=== PATIENT | male | born 1985 | race Caucasian/White ===

== ENCOUNTER 2018-12-13 19:26 | Emergency (ER) | payer BC, OTHER ==
[2018-12-13] MEDS ORDERED: KETOROLAC 60 MG/2 ML VIAL IM STA (19:51)
--- NOTE | 2018-12-13 20:14 | XR ---
EXAMINATION TYPE: XR knee 4V LT DATE OF EXAM: 12/13/2018 COMPARISON: NONE HISTORY: Knee pain TECHNIQUE: 4 views FINDINGS: I see no fracture nor dislocation. Joint spaces are fairly normal. There are no erosions. T here is no sign of knee joint effusion. IMPRESSION: Negative left knee exam.
--- NOTE | 2018-12-13 20:50 | ED ---
General Adult HPI - General Chief complaint: Extremity Injury, Lower Stated complaint: Knee pain Time Seen by Provider: 12/13/18 19:42 Source: patient, RN notes reviewed, old records reviewed Mode of arrival: ambulatory Limitations: no limitations - History of Present Illness Initial comments: 33-year-old male patient with past medical history of left knee injury, facial reconstruction secondary to trauma presents to ED with 36 hours of left knee pain and stiffness. Patient reports that while playing basketball approximately 10 years ago he suffered a injury in which he reports that "something popped in and out". Patient was evaluated by his primary care provider at the time for this problem, did not require any surgery or further intervention. Patient was that he still has pain in this knee at times. Patient reports that while he was getting into bed yesterday and bending his left knee he felt a pop in the left knee and had pain. Patient currently has stiffness in his knee, pain with full extension. Patient is currently using crutches and his not ambulatory. Patient denies any other signs or symptoms. Systemic: Pt denies fatigue, fever/chills, rash. Pt denies weakness, night sweats, weight loss. Neuro: Pt denies headache, visual disturbances, syncope or pre-syncope. HEENT: Pt denies ocular discharge or irritation, otalgia, rhinorrhea, pharyngitis or notable lymphadenopathy. Cardiopulmonary: Pt denies chest pain, SOB, heart palpitations, dyspnea on exertion. Abdominal/GI: Pt denies abdominal pain, n/v/d. : Pt denies dysuria, burning w/ urination, frequency/urgency. Denies new onset urinary or bowel incontinence. MSK: Pt denies loss of strength or function in extremities. Neuro: Pt denies new onset weakness, paresthesias. - Related Data Previous Rx's Medication Instructions Recorded Ibuprofen [Motrin] 600 mg PO Q6HR PRN #40 day 12/13/18 Allergies Allergy/AdvReac Type Severity Reaction Status Date / Time melon Allergy Anaphylaxis Verified 12/13/18 19:40 Review of Systems ROS Statement: Those systems with pertinent positive or pertinent negative responses have been documented in the HPI. ROS Other: All systems not noted in ROS Statement are negative. Past Medical History Past Medical History: No Reported History History of Any Multi-Drug Resistant Organisms: None Reported Past Surgical History: Appendectomy Additional Past Surgical History / Comment(s): Facial surgery Past Psychological History: No Psychological Hx Reported Smoking Status: Current every day smoker Past Alcohol Use History: Rare Past Drug Use History: Marijuana General Exam - General Exam Comments Initial Comments: Constitutional: NAD, AOX3, Pt has pleasant affect. HEENT: NC/AT, trachea midline, neck supple, no lymphadenopathy. Posterior pharynx non erythematous, without exudates. External ears appear normal, without discharge. Mucous membranes moist. Eyes PERRLA, EOM intact. There is no scleral icterus. No pallor noted. Cardiopulmonary: RRR, no murmurs, rubs or gallops, no JVD noted. Lungs CTAB in anterior and posterior smalls. No peripheral edema. Abdominal exam: Abdomen soft and non-distended. Abdomen non-tender to palpation in all 4 quadrants. Bowel sounds active in LLQ. No hepatosplenomegaly. No ecchymosis Neuro: CN II-XII grossly intact. No nuchal rigidity. MSK: Passive ROM of L knee intact, active ROM of L knee limited secondary to pain. Sensation intact. Dorsalis pedis and posterior tibialis pulse +2 bilaterally. Psoas and quadriceps strength 5/5 bilaterally. No posterior calf tenderness bilaterally, homans sign negative bilaterally. Posterior tibialis and radial pulse +2 bilaterally. Sensation intact in upper and lower extremities. Full active ROM in upper extremities 5/5 stregnth. Limitations: no limitations Course Vital Signs 12/13/18 19:37 Temperature 98.2 F Pulse Rate 103 H Respiratory 20 Rate Blood Pressure 164/81 O2 Sat by Pulse 100 Oximetry Medical Decision Making - Medical Decision Making 33-year-old male patient with past medical history of left knee injury, facial reconstruction secondary to trauma presents to ED with 36 hours of left knee pain and stiffness. Patient reports that while he was getting into bed yesterday and bending his left knee he felt a pop in the left knee and had pain. Patient currently has stiffness in his knee, pain with full extension. Patient is currently using crutches and his not ambulatory. Pt VSS, afebrile. Plain film of L knee revealed no acute pathology. Pt improved with toradol, active ROM improved, pt able to range knee. Pt to be placed in knee immobilzer and continue to use crutches, continue to be non weight bearing. Pt to f/u with PCP in 1-2 days. Pt to f/u with orthopedic consult in 1-2 days. PT to return to ED if new s/sx develop or if condition worsens in anyway. Case discussed in depth with Dr. Mosher. Disposition Clinical Impression: Knee pain, left Disposition: HOME SELF-CARE Condition: Stable Instructions: Knee Sprain (ED), Knee Pain (ED) Additional Instructions: Patient to adhere to previously discussed treatment plan and will take medication(s) as directed. Patient to follow up with PCP in 1-2 days. Patient to return to ED if symptoms do not improve. Prescriptions: Ibuprofen [Motrin] 600 mg PO Q6HR PRN #40 day PRN Reason: Pain Is patient prescribed a controlled substance at d/c from ED?: No Referrals: None,Stated [Primary Care Provider] - 1-2 days Harvey Carter MD [STAFF PHYSICIAN] - 1-2 days Time of Disposition: 20:54
[2018-12-13 21:07] VITALS: BP 125/83; PULSE 89; RESP 18; TEMP 98.7
== END 2018-12-13 21:07 | disposition home or self-care (01) ==
LOC: EC 19:26
DX: M25.562 Pain in left knee (principal); F17.200 Nicotine dependence, unspecified, uncomplicated; Z91.018 Allergy to other foods; Z87.828 Personal history of other (healed) physical injury and trauma; Z98.890 Other specified postprocedural states; X58.XXXA Exposure to other specified factors, initial encounter; Y93.89 Activity, other specified
CPT/HCPCS: 73564; 99284; 96372; L1830; J1885

== ENCOUNTER → 2018-12-28 | Outpatient (CLI) | payer SELFPAY ==
[2018-12-28 15:02] LABS: Basophils # (A) 0.1 k/uL (0-0.2); Basophils % (A) 1 %; Eosinophils # (A) 0.6 k/uL (0-0.7); Eosinophils % (A) 7 %; HCT 47.4 % (39.0-53.0); HGB 15.4 gm/dL (13.0-17.5); Lymphocytes # (A) 2.7 k/uL (1.0-4.8); Lymphocytes % (A) 31 %; MCH 29.3 pg (25.0-35.0); MCHC 32.4 g/dL (31.0-37.0); MCV 90.4 fL (80.0-100.0); Mean Platelet Volume 6.1; Monocytes # (A) 0.5 k/uL (0-1.0); Monocytes % (A) 5 %; Neutrophils # (A) 4.6 k/uL (1.3-7.7); Neutrophils % (A) 53 %; Platelet Count 251 k/uL (150-450); RBC 5.24 m/uL (4.30-5.90); RDW 12.4 % (11.5-15.5); WBC 8.7 k/uL (3.8-10.6)
[2018-12-28 15:16] LABS: Potassium 4.7 mmol/L (3.5-5.1)
== END | disposition home or self-care (01) ==
LOC: LABPAT 13:02
PROVIDERS: ATTEND Orthopaedic Surgery
DX: Z01.812 Encounter for preprocedural laboratory examination (principal); M23.92 Unspecified internal derangement of left knee
CPT/HCPCS: 36415; 80051; 85025

== ENCOUNTER 2018-12-29 12:23 | Day surgery (SDC) | payer SELFPAY ==
[2018-12-24 15:47] VITALS: BMI 28.6
--- NOTE | 2018-12-28 09:27 | HP ---
HISTORY AND PHYSICAL CHIEF COMPLAINT: Left knee pain. HISTORY OF PRESENT ILLNESS: Patient is a 33-year-old, unemployed male who presents with left knee pain after a previous injury 12 years ago playing basketball. He re-injured it recently. He notes limited motion, and pain with weightbearing activities. Currently, he is taking no pain medications. He notes giving way and instability. PAST MEDICAL HISTORY: Negative. PAST SURGICAL HISTORY: Significant for appendectomy and facial reconstruction. CURRENT ALLERGIES: None. He denies drug allergies. FAMILY HISTORY: Significant for diabetes. SOCIAL HISTORY: Significant for social alcohol use and current tobacco use. REVIEW OF SYSTEMS: A 16-point review of systems otherwise reviewed and is noncontributory. PHYSICAL EXAMINATION: Patient is approximately 5 foot 11, 210 pounds of endomorphic habitus. HEENT exam is nonfocal. Neck is supple. He has painless passive motion of his left hip. Straight leg raise is negative. Active motion left knee -10 to 110 degrees of flexion. He has a moderate effusion. He is tender about the lateral joint line. Collaterals are stable. Dimitrios is 1+. Pivot shift is positive. Johanna's elicits lateral pain. His distal neurovascular appears intact in the left lower extremity. MRI report from 12/17/2018 shows lateral compartment osteoarthrosis along with chronic ACL rupture and bucket-handle tear of the lateral meniscus. IMPRESSION: 1. Left knee internal derangement with symptomatic lateral meniscal tear. 2. Left knee chronic ACL rupture. RECOMMENDATIONS: I talked to the patient at length regarding his condition and treatment options. At this point, he is quite symptomatic and opts to proceed with surgery. We will plan to proceed with arthroscopic evaluation with probable partial lateral meniscectomy in addition to possible ACL debridement. We will likely perform that as an outpatient procedure. Risks and benefits were discussed at length in layman's terms. MMODL / IJN: [id number] /
[~2018-12-29 12:23] MED LIST: DEXAMETHASONE SOD PHOSPHATE 10 MG/ML 1 ML VIAL IV ONE; LACTATED RINGERS 1,000 ML IV SCH; LIDOCAINE 1% 20 ML VIAL (10MG/ML) FOR IV START INTRADERMA PRN; MIDAZOLAM 2 MG/2 ML VIAL IV PRN; ceFAZolin IN SWFI 2 GM/20 ML SYRINGE IVP ONE; fentaNYL (PF) 50 MCG/ML 2 ML AMP IV PRN
[2018-12-29] MEDS ORDERED: ONDANSETRON 4 MG/2 ML VIAL IVP ONE (13:14)
[2018-12-29 13:18] LABS: Glucose,Whole Blood 98 mg/dL (75-99)
[2018-12-29] MEDS ORDERED: MIDAZOLAM 2 MG/2 ML VIAL ONE ×2 (13:59)
[2018-12-29] MEDS ORDERED: PROPOFOL 10 MG/ML 20 ML VIAL IV ONE (13:59)
[2018-12-29] MEDS ORDERED: LIDOCAINE 1% INJ 10MG/ML (20 ML MDV) ONE (13:59)
--- NOTE | 2018-12-29 14:44 | P.OP ---
Date of Procedure: 12/29/18 Preoperative Diagnosis: Left knee internal derangement Postoperative Diagnosis: Left knee bucket-handle lateral meniscal tear, chronic ACL rupture Procedure(s) Performed: Left knee arthroscopic partial lateral meniscectomy/ACL debridement Anesthesia: ALONA Surgeon: Harvey Carter Estimated Blood Loss (ml): 10 Pathology: none sent Condition: stable Disposition: PACU Indications for Procedure: The patient is a 33-year-old male who presents with progressive left knee pain and mechanical symptoms after a recent injury, however he had the initial injury 12 years ago. A discussion of the risks and benefits of operative intervention was made with the patient. He opted to proceed with surgery. Operative risks to include infection, neurovascular injury, development of blood clots, possible incomplete resolution of symptoms, possible persistence of instability and need for subsequent procedures was discussed. Informed consent was obtained. We discussed not proceeding with ACL reconstruction at this point. Operative Findings: As below Description of Procedure: The patient was brought to the operating room, and after induction of general anesthesia examined the left knee. Collaterals were stable, Dimitrios was positive, and posterior drawer was negative. The left lower extremity was prepped and draped in a normal fashion. A superior lateral portal was made through a 3 mm skin incision superior and lateral to the patella. This was used for outflow. A lateral portal was made through a 5 mm vertical skin incision lateral to the patella tendon above the joint line. Diagnostic arthroscopy was performed. On inspection of the medial compartment no significant meniscal pathology was noted. On inspection of the notch, the anterior cruciate ligament appeared to be ruptured off the lateral femoral wall. The impinging tissue was debrided anteriorly. On inspection of the lateral compartment, a bucket-handle tear involving the lateral meniscus was noted in the white-red junction. This was not amenable to repair. This was debrided back to stable base with straight baskets and a motorized shaver. Grade 2 chondral changes were noted diffusely in the lateral compartment. On inspection of the patellofemoral articulation no significant pathology was noted. The gutters were clear debris. The knee was then thoroughly irrigated. The portals were closed with Steri-Strips. A sterile dressing was applied in addition to a compression stocking. The patient was awoken from general anesthesia and transferred to recovery room in good condition. Blood loss was estimated at 10 mL. No complications were incurred.
[2018-12-29 14:59] VITALS: TEMP 97.6
[2018-12-29] MEDS ORDERED: KETOROLAC 30 MG/ML 1 ML VIAL IVP ONE (15:05)
[2018-12-29] MEDS: HYDROmorphone 1 MG/ML 1 ML SYRINGE IVP ONE ×2 (15:06→15:13)
[2018-12-29 15:56] VITALS: RESP 16
[2018-12-29 16:13] VITALS: BP 132/81; PULSE 59
[2018-12-29 16:24] LABS: Glucose,Whole Blood 119 mg/dL (75-99)
== END 2018-12-29 16:29 | disposition home or self-care (01) ==
LOC: OR 12:23
PROVIDERS: ATTEND Orthopaedic Surgery
DX: S83.252A Bucket-handle tear of lateral meniscus, current injury, left knee, initial encounter (principal); M23.52 Chronic instability of knee, left knee; M17.12 Unilateral primary osteoarthritis, left knee; Z91.018 Allergy to other foods; F17.210 Nicotine dependence, cigarettes, uncomplicated; K21.9 Gastro-esophageal reflux disease without esophagitis; Z79.1 Long term (current) use of non-steroidal anti-inflammatories (NSAID)
CPT/HCPCS: 29881; 29999; J2250; J1100; J2405; J2001; J1885; J1170; J2704; J0690

== ENCOUNTER 2019-11-14 21:56 | Emergency (ER) | payer OTHER ==
[2019-11-14 22:04] VITALS: BP 124/81; PULSE 91; RESP 20; TEMP 97.9
--- NOTE | 2019-11-14 22:41 | ED ---
General Adult HPI - General Chief complaint: Extremity Problem,Nontraumatic Stated complaint: Leg swelling Time Seen by Provider: 11/14/19 22:07 Source: patient, family, RN notes reviewed Mode of arrival: ambulatory Limitations: no limitations - History of Present Illness Initial comments: 34-year-old male without any significant past medical history presents to the emergency department for right lower extremities pain. Patient was walking this morning after drinking last night. States he is unsure if he injured his ankle at that time. States this also happened a few days ago and then it resolved. States that he feels like his lower leg is swollen and red. States it hurts in his calf to move his ankle. Denies fevers or chills. Denies any immunocompromising states. Patient has no other complaints at this time including shortness of breath, chest pain, abdominal pain, nausea or vomiting, headache, or visual changes. - Related Data Previous Rx's Medication Instructions Recorded Ibuprofen [Motrin] 600 mg PO Q6HR PRN #40 day 12/13/18 Hydrocodone/Acetaminophen [[place] 1 each PO Q6HR PRN #28 tab 12/29/18 5-325] Cephalexin [Keflex] 500 mg PO Q6HR 10 Days #40 cap 11/14/19 Allergies Allergy/AdvReac Type Severity Reaction Status Date / Time melon Allergy Anaphylaxis Verified 11/14/19 22:04 Review of Systems ROS Statement: Those systems with pertinent positive or pertinent negative responses have been documented in the HPI. ROS Other: All systems not noted in ROS Statement are negative. Past Medical History Past Medical History: No Reported History Additional Past Medical History / Comment(s): hypoglycemia History of Any Multi-Drug Resistant Organisms: None Reported Past Surgical History: Appendectomy Additional Past Surgical History / Comment(s): Facial surgery Past Anesthesia/Blood Transfusion Reactions: No Reported Reaction Additional Past Anesthesia/Blood Transfusion Reaction / Comment(s): no hx blood transfusion Past Psychological History: No Psychological Hx Reported Smoking Status: Current every day smoker Past Alcohol Use History: Occasional Past Drug Use History: Marijuana - Past Family History Mother Family Medical History: No Reported History General Exam Limitations: no limitations General appearance: alert, in no apparent distress Head exam: Present: atraumatic, normocephalic, normal inspection Eye exam: Present: normal appearance, PERRL, EOMI. Absent: scleral icterus, conjunctival injection, periorbital swelling ENT exam: Present: normal exam, mucous membranes moist Neck exam: Present: normal inspection, full ROM. Absent: tenderness, meningismus, lymphadenopathy Respiratory exam: Present: normal lung sounds bilaterally. Absent: respiratory distress, wheezes, rales, rhonchi, stridor Cardiovascular Exam: Present: regular rate, normal rhythm, normal heart sounds. Absent: systolic murmur, diastolic murmur, rubs, gallop, clicks Extremities exam: Present: full ROM (Full range motion of the right ankle and knee), tenderness (Tenderness noted in the posterior right distal calf. No tenderness in the foot, medial, or lateral malleolus. No tenderness posterior to the right knee.), normal capillary refill (Capillary refill < 2 seconds, dp pulse 2+ in the right lower extremity.), other (mild edema of the RLE with mild erythema from the proximal ankle to the mid calf.). Absent: pedal edema, joint swelling, calf tenderness Course Vital Signs 11/14/19 21:59 Temperature 97.9 F Pulse Rate 91 Respiratory 20 Rate Blood Pressure 124/81 O2 Sat by Pulse 96 Oximetry Medical Decision Making - Medical Decision Making X-ray of the tib-fib is negative. Ultrasound of the right lower extremity is negative for DVT. Patient physical exam is consistent with cellulitis. This is about 10 cm x 10 cm in the distal right lower extremity. Patient treated with Keflex. Patient will follow up with primary care in 1-2 days. He will return here if he has any worsening symptoms. I did discuss that symptoms may spread a small amount over the next 24 hours however symptoms should then begin to improve. If this does not improve after 24-48 hours, has significant spreading of the erythema in the next day. or he starts to experience fevers he will return Disposition Clinical Impression: Cellulitis Disposition: HOME SELF-CARE Condition: Good Instructions (If sedation given, give patient instructions): Cellulitis (ED) Additional Instructions: Please take antibiotic as directed. Please follow-up with primary care in 1-2 days. Redness may spread a small amount over the next 24 hours however it should begin to improve after that. If you have significant spreading of the redness or symptoms do not begin to improve after 24-48 hours of antibiotics return to the emergency department. If you have any other worsening symptoms such as fever return to the emergency room. Prescriptions: Cephalexin [Keflex] 500 mg PO Q6HR 10 Days #40 cap Is patient prescribed a controlled substance at d/c from ED?: No Referrals: Donato Clemente MD [REFERRING] - 1-2 days Time of Disposition: 23:34
--- NOTE | 2019-11-14 23:00 | XR ---
EXAMINATION TYPE: XR tibia fibula RT DATE OF EXAM: 11/14/2019 COMPARISON: NONE HISTORY: Pain TECHNIQUE: 2 views FINDINGS: I see no fracture nor dislocation. Joint spaces are normal. Joint and ankle joint appear intact. IMPRESSION: Negative right tibia and fibula exam.
--- NOTE | 2019-11-14 23:15 | US ---
EXAMINATION TYPE: US venous doppler duplex LE RT DATE OF EXAM: 11/14/2019 10:32 PM COMPARISON: NONE CLINICAL HISTORY: erythema. SIDE PERFORMED: Right TECHNIQUE: The lower extremity deep venous system is examined utilizing real time linear array sonog ramesh with graded compression, doppler sonography and color-flow sonography. VESSELS IMAGED: External Iliac Vein (EIV) Common Femoral Vein Deep Femoral Vein Greater Saphenous Vein * Femoral Vein Popliteal Vein Small Saphenous Vein * Proximal Calf Veins (* superficial vessels) Right Leg: Negative for DVT IMPRESSION: Normal exam. No evidence of deep venous thrombosis in the right leg.
[2019-11-14] MEDS ORDERED: CEPHALEXIN 500MG STARTER PACK 4 CAP BTL PO STA (23:35)
== END 2019-11-14 23:47 | disposition home or self-care (01) ==
LOC: EC 21:56
DX: L03.115 Cellulitis of right lower limb (principal); F17.200 Nicotine dependence, unspecified, uncomplicated; Z91.018 Allergy to other foods
CPT/HCPCS: 99284

== ENCOUNTER 2022-08-26 02:07 | Observation (INO) | payer OTHER ==
--- NOTE | 2022-08-26 02:42 | XR ---
EXAMINATION TYPE: XR KUB DATE OF EXAM: 08/26/2022 COMPARISON: NONE HISTORY: Abdominal pain TECHNIQUE: 2 views Upright FINDINGS: There is no sign of intestinal obstruction or pneumoperitoneum. Fecal pattern is normal. No sign of a mass. Lung bases are clear. There are no pathologic calcifications over the kidneys. IMPRESSION: Nonacute abdomen.
[2022-08-26 03:07] LABS: Basophils # (A) 0.1 k/uL (0-0.2); Basophils % (A) 1 %; Eosinophils # (A) 0.2 k/uL (0-0.7); Eosinophils % (A) 1 %; HCT 45.1 % (39.0-53.0); HGB 15.3 gm/dL (13.0-17.5); Lymphocytes # (A) 2.3 k/uL (1.0-4.8); Lymphocytes % (A) 11 %; MCH 30.4 pg (25.0-35.0); MCHC 33.9 g/dL (31.0-37.0); MCV 89.7 fL (80.0-100.0); Mean Platelet Volume 7.2; Monocytes # (A) 0.5 k/uL (0-1.0); Monocytes % (A) 3 %; Neutrophils # (A) 17.1 k/uL (1.3-7.7); Neutrophils % (A) 84 %; Platelet Count 265 k/uL (150-450); RBC 5.03 m/uL (4.30-5.90); RDW 12.1 % (11.5-15.5); WBC 20.3 k/uL (3.8-10.6)
[2022-08-26 03:32] LABS: ALT 28 U/L (4-49); African American GFR (CKD) >90 (>60 ml/min/1.73 sqM); Amylase 71 U/L (30-110); Anion Gap 15 mmol/L; Blood Urea Nitrogen 16 mg/dL (9-20); Calcium 9.9 mg/dL (8.4-10.2); Carbon Dioxide 24 mmol/L (22-30); Chloride 99 mmol/L (98-107); Glucose 133 mg/dL (74-99); Lipase 213 U/L (23-300); Non-African American GFR(CKD) >90 (>60 ml/min/1.73 sqM); Sodium 138 mmol/L (137-145); Total Bilirubin 0.5 mg/dL (0.2-1.3); Total Protein 7.9 g/dL (6.3-8.2)
[2022-08-26 03:37] LABS: AST 28 U/L (17-59); Alkaline Phosphatase 98 U/L (38-126); Potassium 4.2 mmol/L (3.5-5.1)
[2022-08-26] MEDS ORDERED: ACETAMINOPHEN TAB 500 MG TAB PO STA (04:40)
[2022-08-26] MEDS ORDERED: SODIUM CHLORIDE 0.9% 1,000 ML IV STA (04:40)
[2022-08-26] MEDS ORDERED: IBUPROFEN 800 MG TAB PO STA (04:40)
--- NOTE | 2022-08-26 04:49 | ED ---
Abdominal Pain HPI <Brennen Pelletier - Last Filed: 08/26/22 08:27> - General Source: patient, RN notes reviewed, old records reviewed Mode of arrival: ambulatory Limitations: no limitations - History of Present Illness MD Complaint: abdominal pain -: days(s) Location: periumbilical, RUQ Radiation: epigastric Migration to: epigastric Severity: moderate Severity scale (1-10): 7 Quality: sharp Consistency: constant, intermittent, colicky Improves With: nothing Worsens With: nothing Associated Symptoms: nausea, vomiting Treatments Prior to Arrival: other (0) <Glen Rocha - Last Filed: 08/26/22 21:17> - General Chief Complaint: Abdominal Pain Stated Complaint: Abdominal Pain, Vomiting Time Seen by Provider: 08/26/22 04:40 - History of Present Illness Initial Comments: This is a 37-year-old male to the emergency department for evaluation patient presents today for evaluation of severe abdominal pain. Epigastric bowel pain with nausea no vomiting no fevers or travel show sick contacts no other complaints. (Glen Rocha) - Related Data Previous Rx's Medication Instructions Recorded Acetaminophen Tab [Tylenol] 650 mg PO Q6H #30 tab 08/26/22 Docusate [Colace] 100 mg PO BID #20 capsule 08/26/22 Ibuprofen [Motrin] 600 mg PO Q6HR PRN #40 tab 08/26/22 oxyCODONE HCL [OxyIR] 5 mg PO Q6H PRN 3 Days #10 tab 08/26/22 Allergies Allergy/AdvReac Type Severity Reaction Status Date / Time melon Allergy Anaphylaxis Verified 08/26/22 08:16 Review of Systems ROS Other: All systems not noted in ROS Statement are negative. <Brennen Pelletier - Last Filed: 08/26/22 08:27> ROS Other: All systems not noted in ROS Statement are negative. <Glen Rocha - Last Filed: 08/26/22 21:17> ROS Statement: Those systems with pertinent positive or pertinent negative responses have been documented in the HPI. Past Medical History Past Medical History: No Reported History Additional Past Medical History / Comment(s): hypoglycemia History of Any Multi-Drug Resistant Organisms: None Reported Past Surgical History: Appendectomy, Orthopedic Surgery Additional Past Surgical History / Comment(s): Facial surgery,knee Past Anesthesia/Blood Transfusion Reactions: No Reported Reaction Additional Past Anesthesia/Blood Transfusion Reaction / Comment(s): no hx blood transfusion Past Psychological History: No Psychological Hx Reported Smoking Status: Current every day smoker Past Alcohol Use History: Occasional Past Drug Use History: Cocaine, Marijuana - Past Family History Mother Family Medical History: No Reported History <Glen Rocha - Last Filed: 08/26/22 21:17> General Exam Limitations: no limitations General appearance: alert, in no apparent distress Head exam: Present: atraumatic, normocephalic, normal inspection Eye exam: Present: normal appearance, PERRL, EOMI. Absent: scleral icterus, conjunctival injection, periorbital swelling ENT exam: Present: normal exam, mucous membranes moist Neck exam: Present: normal inspection. Absent: tenderness, meningismus, lymphadenopathy Respiratory exam: Present: normal lung sounds bilaterally. Absent: respiratory distress, wheezes, rales, rhonchi, stridor Cardiovascular Exam: Present: regular rate, normal rhythm, normal heart sounds. Absent: systolic murmur, diastolic murmur, rubs, gallop, clicks GI/Abdominal exam: Present: soft, tenderness, guarding, normal bowel sounds. Absent: distended, rebound, rigid Extremities exam: Present: normal inspection, full ROM, normal capillary refill. Absent: tenderness, pedal edema, joint swelling, calf tenderness Back exam: Present: normal inspection Neurological exam: Present: alert, oriented X3, CN II-XII intact Psychiatric exam: Present: normal affect, normal mood Skin exam: Present: warm, dry, intact, normal color. Absent: rash <Glen Rocha - Last Filed: 08/26/22 21:17> Course <Glen Rocha - Last Filed: 08/26/22 21:17> Vital Signs 08/26/22 08/26/22 08/26/22 02:21 04:19 06:41 Temperature 97.6 F Pulse Rate 46 L 56 L 62 Respiratory 28 H 18 Rate Blood Pressure 183/98 146/75 O2 Sat by Pulse 100 96 97 Oximetry 08/26/22 09:01 Temperature Pulse Rate 57 L Respiratory 16 Rate Blood Pressure 125/75 O2 Sat by Pulse 95 Oximetry - Reevaluation(s) Reevaluation #1: 08/26/22 Medical Is reviewed Patient feels improved here in the ER Patient informed of results and questions answered (Glen Rocha) Medical Decision Making - Lab Data Result diagrams: 08/26/22 02:44 08/26/22 02:44 <Brennen Pelletier - Last Filed: 08/26/22 08:27> - Lab Data Result diagrams: 08/26/22 02:44 08/26/22 02:44 - Radiology Data Radiology results: report reviewed (CT abdomen pelvis shows enlarged gallbladder with possible stone ultrasound confirms stone and DrNatasha), image reviewed <Glen Rocha - Last Filed: 08/26/22 21:17> - Medical Decision Making 37-year-old male who had been evaluated for epigastric abdominal pain, vomiting which began acutely. He was in the emergency department seen by the prior y sician signed out at shift change awaiting ultrasound of the gallbladder. This was performed which shows a stone in the neck of gallbladder with a positive Langston's sign. Given the leukocytosis of [address] did discuss case with Dr[address] Acosta who agrees this is likely acute cholecystitis. The patient will be admitted with plan for cholecystectomy. (Brennen Pelletier) - Lab Data Lab Results 08/26/22 08/26/22 08/26/22 Range/Units 02:44 02:44 02:44 WBC 20.3 H (3.8-10.6) k/uL RBC 5.03 (4.30-5.90) m/uL Hgb 15.3 (13.0-17.5) gm/dL Hct 45.1 (39.0-53.0) % MCV 89.7 (80.0-100.0) fL MCH 30.4 (25.0-35.0) pg MCHC 33.9 (31.0-37.0) g/dL RDW 12.1 (11.5-15.5) % Plt Count 265 (150-450) k/uL MPV 7.2 Neutrophils % 84 % Lymphocytes % 11 % Monocytes % 3 % Eosinophils % 1 % Basophils % 1 % Neutrophils # 17.1 H (1.3-7.7) k/uL Lymphocytes # 2.3 (1.0-4.8) k/uL Monocytes # 0.5 (0-1.0) k/uL Eosinophils # 0.2 (0-0.7) k/uL Basophils # 0.1 (0-0.2) k/uL Sodium 138 (137-145) mmol/L Potassium 4.2 (3.5-5.1) mmol/L Chloride 99 (98-107) mmol/L Carbon Dioxide 24 (22-30) mmol/L Anion Gap 15 mmol/L BUN 16 (9-20) mg/dL Creatinine 0.95 (0.66-1.25) mg/dL Est GFR (CKD-EPI)AfAm >90 (>60 ml/min/1.73 sqM) Est GFR (CKD-EPI)NonAf >90 (>60 ml/min/1.73 sqM) Glucose 133 H (74-99) mg/dL Lactic Ac Sepsis Rflx Plasma Lactic Acid Walter 2.4 H* (0.7-2.0) mmol/L Calcium 9.9 (8.4-10.2) mg/dL Total Bilirubin 0.5 (0.2-1.3) mg/dL AST 28 (17-59) U/L ALT 28 (4-49) U/L Alkaline Phosphatase 98 (38-126) U/L Total Protein 7.9 (6.3-8.2) g/dL Albumin 5.0 (3.5-5.0) g/dL Amylase 71 (30-110) U/L Lipase 213 (23-300) U/L Urine Color Urine Appearance (Clear) Urine pH (5.0-8.0) Ur Specific [place] (1.001-1.035) Urine Protein (Negative) Urine Glucose (UA) (Negative) Urine Ketones (Negative) Urine Blood (Negative) Urine Nitrite (Negative) Urine Bilirubin (Negative) Urine Urobilinogen (<2.0) mg/dL Ur Leukocyte Esterase (Negative) 08/26/22 08/26/22 08/26/22 Range/Units 04:06 05:37 06:47 WBC (3.8-10.6) k/uL RBC (4.30-5.90) m/uL Hgb (13.0-17.5) gm/dL Hct (39.0-53.0) % MCV (80.0-100.0) fL MCH (25.0-35.0) pg MCHC (31.0-37.0) g/dL RDW (11.5-15.5) % Plt Count (150-450) k/uL MPV Neutrophils % % Lymphocytes % % Monocytes % % Eosinophils % % Basophils % % Neutrophils # (1.3-7.7) k/uL Lymphocytes # (1.0-4.8) k/uL Monocytes # (0-1.0) k/uL Eosinophils # (0-0.7) k/uL Basophils # (0-0.2) k/uL Sodium (137-145) mmol/L Potassium (3.5-5.1) mmol/L Chloride (98-107) mmol/L Carbon Dioxide (22-30) mmol/L Anion Gap mmol/L BUN (9-20) mg/dL Creatinine (0.66-1.25) mg/dL Est GFR (CKD-EPI)AfAm (>60 ml/min/1.73 sqM) Est GFR (CKD-EPI)NonAf (>60 ml/min/1.73 sqM) Glucose (74-99) mg/dL Lactic Ac Sepsis Rflx Y Plasma Lactic Acid Walter 1.6 (0.7-2.0) mmol/L Calcium (8.4-10.2) mg/dL Total Bilirubin (0.2-1.3) mg/dL AST (17-59) U/L ALT (4-49) U/L Alkaline Phosphatase (38-126) U/L Total Protein (6.3-8.2) g/dL Albumin (3.5-5.0) g/dL Amylase (30-110) U/L Lipase (23-300) U/L Urine Color Light Yellow Urine Appearance Clear (Clear) Urine pH 7.0 (5.0-8.0) Ur Specific [place] 1.017 (1.001-1.035) Urine Protein Trace H (Negative) Urine Glucose (UA) Negative (Negative) Urine Ketones Negative (Negative) Urine Blood Negative (Negative) Urine Nitrite Negative (Negative) Urine Bilirubin Negative (Negative) Urine Urobilinogen <2.0 (<2.0) mg/dL Ur Leukocyte Esterase Negative (Negative) Disposition Is patient prescribed a controlled substance at d/c from ED?: No Time of Disposition: 08:29 <Brennen Pelletier - Last Filed: 08/26/22 08:27> Is patient prescribed a controlled substance at d/c from ED?: No <Glen Rocha - Last Filed: 08/26/22 21:17> Clinical Impression: Acute cholecystitis, Abdominal pain, Abdominal colic Disposition: ADMITTED IP TO THIS HOSP Condition: Stable
--- NOTE | 2022-08-26 05:32 | CT ---
EXAMINATION TYPE: CT angio chest DATE OF EXAM: 08/26/2022 COMPARISON: None HISTORY: pain CT DLP: 492.3 mGycm Automated exposure control for dose reduction was used. CONTRAST: Performed with IV Contrast, patient injected with 100 mL of Isovue 370. There are Three-D postprocessed images. The lungs are clear of infiltrate. No evidence of a pulmonary mass. No pleural effusion. No pericardi al effusion. There is minimal subsegmental atelectasis in the posterior lung smalls. Heart size is no rmal. There is no mediastinal adenopathy. There are no hilar masses. Thoracic aorta is intact no aneurysm o r dissection. There is normal contrast opacification of the pulmonary arteries. No filling defect. The thoracic spine is intact. No compression fracture. Sternum is intact. No evidence of rib fracture . IMPRESSION: No evidence of pulmonary embolism. Minimal subsegmental atelectasis.
--- NOTE | 2022-08-26 05:38 | CT ---
EXAMINATION TYPE: CT abdomen pelvis w con DATE OF EXAM: 08/26/2022 COMPARISON: None HISTORY: pain CT DLP: 1215.2 mGycm Automated exposure control for dose reduction was used. CONTRAST: Performed with IV Contrast, patient injected with 100 mL of Isovue 370. Images obtained from the diaphragm to the floor the pelvis with the IV contrast. Lung bases are clear of consolidation. No pleural effusion. No pericardial effusion. Liver spleen and stomach pancreas appear intact. Gallbladder is large and measures 11 x 3.5 cm. There appears to be a single 13 mm gallstone at the gallbladder neck. No gallbladder wall thickening. The bile ducts are nondilated. There is no adrenal mass. Kidneys show satisfactory contrast opacification. No hydronephrosis. Delaye d images show normal renal excretion. No retroperitoneal adenopathy. Ureters are not dilated. The мария dder distends smoothly. No inguinal hernia. No free fluid in the pelvis. No pelvic mass. There are a few sigmoid diverticula. No diverticulitis. The small bowel pattern is normal. Terminal ileum appears normal. Appendix not clearly seen. No sign of thickened appendix. There is no mesenteric edema. No ascites or free air. No sign of a bowel obstruction. The lumbar vert ebrae have normal alignment. Disc spaces are normal. No compression fracture. Posterior elements are intact. The bony pelvis appears intact. The hip joints appear normal. IMPRESSION: Single gallstone at the gallbladder neck with large gallbladder that could relate to obstruction. There are a few sigmoid diverticula without diverticulitis.
[2022-08-26] MEDS ORDERED: HYDROmorphone 1 MG/ML 1 ML SYRINGE IVP STA (05:43)
[2022-08-26] MEDS ORDERED: KETOROLAC 15 MG/ML 1 ML VIAL IVP STA (05:43)
[2022-08-26 06:26] LABS: Appearance,Urine Clear (Clear); Bilirubin,Urine Negative (Negative); Blood,Urine Negative (Negative); Color,Urine Light Yellow; Glucose,Urine (UA) Negative (Negative); Ketones,Urine Negative (Negative); Leukocyte Esterase,Urine Negative (Negative); Nitrite,Urine Negative (Negative); Protein,Urine Trace (Negative); Specific Gravity,Urine 1.017 (1.001-1.035); Urobilinogen,Urine <2.0 mg/dL (<2.0)
[2022-08-26] MEDS ORDERED: AMPICILLIN-SULBACTAM 3 GM in SODIUM CHLORIDE 0.9% 100 ML IVPB STA (07:11)
--- NOTE | 2022-08-26 07:43 | US ---
EXAMINATION TYPE: US gallbladder DATE OF EXAM: 08/26/2022 COMPARISON: CT 08/26/2022 CLINICAL HISTORY: pain. TECHNIQUE: Multiple sonographic images of the right upper quadrant are obtained. FINDINGS: EXAM MEASUREMENTS: Liver Length: 13.7 cm Gallbladder Wall: 0.3 cm CBD: 0.4 cm Right Kidney: 12.5 x 4.9 x 6.6 cm [employer] NOTES: Pancreas: visualized portions wnl. Liver: wnl Gallbladder: single stone in neck of gallbladder, did not move with multiple patient positions. Gall bladder wall within normal limits for thickness. No pericholecystic fluid. Evidence for sonographic Langston's sign: Yes CBD: wnl Right Kidney: No hydronephrosis or masses seen IMPRESSION: Cholelithiasis with A+ sonographic Langston's sign in a relatively nondistended gallbladder. Correlate for for acute cholecystitis with HIDA scan.
[2022-08-26] MEDS ORDERED: SODIUM CHLORIDE 0.9% 1,000 ML IV SCH (08:15)
[2022-08-26] MEDS ORDERED: HYDROmorphone 1 MG/ML 1 ML SYRINGE IVP PRN (08:26)
[2022-08-26] MEDS ORDERED: NALOXONE 0.4 MG/ML 1 ML VIAL IV PRN ×2 (08:26→12:11)
[2022-08-26] MEDS ORDERED: HYDROmorphone 0.5 MG/0.5 ML SYRINGE IVP PRN (08:26)
[2022-08-26] MEDS ORDERED: ONDANSETRON 4 MG/2 ML VIAL IVP PRN ×2 (08:26→12:11)
[2022-08-26] MEDS ORDERED: LACTATED RINGERS 1,000 ML IV ONE ×2 (11:08→14:35)
[2022-08-26] MEDS ORDERED: ONDANSETRON 4 MG/2 ML VIAL IVP ONE (11:08)
[2022-08-26] MEDS ORDERED: FAMOTIDINE 20 MG/2 ML VIAL IVP ONE (11:09)
[2022-08-26] MEDS ORDERED: DEXAMETHASONE SOD PHOSPHATE 4 MG/ML 1 ML VIAL IVP ONE (11:09)
[2022-08-26] MEDS ORDERED: HEPARIN SODIUM,PORCINE 5,000 UNIT/ML 1 ML VIAL SQ ONE (11:10)
--- NOTE | 2022-08-26 11:19 | P.GSHP ---
History of Present Illness H&P Date: 08/26/22 Chief Complaint: Cholecystitis This is a 37-year-old male presents emergency room with right upper quadrant pain. Patient was worked up emergency room is found have a gallstone impacted in the neck of the gallbladder. He is admitted for cholecystitis. Past Medical History Past Medical History: No Reported History Additional Past Medical History / Comment(s): hypoglycemia History of Any Multi-Drug Resistant Organisms: None Reported Past Surgical History: Appendectomy, Orthopedic Surgery Additional Past Surgical History / Comment(s): Facial surgery,knee Past Anesthesia/Blood Transfusion Reactions: No Reported Reaction Additional Past Anesthesia/Blood Transfusion Reaction / Comment(s): no hx blood transfusion Past Psychological History: No Psychological Hx Reported Smoking Status: Current every day smoker Past Alcohol Use History: Occasional Past Drug Use History: Cocaine, Marijuana - Past Family History Mother Family Medical History: No Reported History Medications and Allergies Home Medications Medication Instructions Recorded Confirmed Type No Known Home Medications 08/26/22 08/26/22 History Allergies Allergy/AdvReac Type Severity Reaction Status Date / Time melon Allergy Anaphylaxis Verified 08/26/22 08:16 Surgical - Exam Vital Signs Temp Pulse Resp BP Pulse Ox 97.6 F 46 L 28 H 183/98 100 08/26/22 02:21 08/26/22 02:21 08/26/22 02:21 08/26/22 02:21 08/26/22 02:21 - General well developed, well nourished, no distress - Eyes PERRL - ENT normal pinna - Neck no masses - Respiratory normal expansion - Cardiovascular Rhythm: regular - Abdomen Tender right upper quadrant Abdomen: soft Hernia: none Results - Labs 08/26/22 02:44 08/26/22 02:44 Abnormal Lab Results - Last 24 Hours (Table) 08/26/22 08/26/22 08/26/22 Range/Units 02:44 02:44 02:44 WBC 20.3 H (3.8-10.6) k/uL Neutrophils # 17.1 H (1.3-7.7) k/uL Glucose 133 H (74-99) mg/dL Plasma Lactic Acid Walter 2.4 H* (0.7-2.0) mmol/L Urine Protein (Negative) 08/26/22 Range/Units 05:37 WBC (3.8-10.6) k/uL Neutrophils # (1.3-7.7) k/uL Glucose (74-99) mg/dL Plasma Lactic Acid Wlater (0.7-2.0) mmol/L Urine Protein Trace H (Negative) Diabetes panel 08/26/22 Range/Units 02:44 Sodium 138 (137-145) mmol/L Potassium 4.2 (3.5-5.1) mmol/L Chloride 99 (98-107) mmol/L Carbon Dioxide 24 (22-30) mmol/L BUN 16 (9-20) mg/dL Creatinine 0.95 (0.66-1.25) mg/dL Glucose 133 H (74-99) mg/dL Calcium 9.9 (8.4-10.2) mg/dL AST 28 (17-59) U/L ALT 28 (4-49) U/L Alkaline Phosphatase 98 (38-126) U/L Total Protein 7.9 (6.3-8.2) g/dL Albumin 5.0 (3.5-5.0) g/dL Calcium panel 08/26/22 Range/Units 02:44 Calcium 9.9 (8.4-10.2) mg/dL Albumin 5.0 (3.5-5.0) g/dL Pituitary panel 08/26/22 Range/Units 02:44 Sodium 138 (137-145) mmol/L Potassium 4.2 (3.5-5.1) mmol/L Chloride 99 (98-107) mmol/L Carbon Dioxide 24 (22-30) mmol/L BUN 16 (9-20) mg/dL Creatinine 0.95 (0.66-1.25) mg/dL Glucose 133 H (74-99) mg/dL Calcium 9.9 (8.4-10.2) mg/dL Adrenal panel 08/26/22 Range/Units 02:44 Sodium 138 (137-145) mmol/L Potassium 4.2 (3.5-5.1) mmol/L Chloride 99 (98-107) mmol/L Carbon Dioxide 24 (22-30) mmol/L BUN 16 (9-20) mg/dL Creatinine 0.95 (0.66-1.25) mg/dL Glucose 133 H (74-99) mg/dL Calcium 9.9 (8.4-10.2) mg/dL Total Bilirubin 0.5 (0.2-1.3) mg/dL AST 28 (17-59) U/L ALT 28 (4-49) U/L Alkaline Phosphatase 98 (38-126) U/L Total Protein 7.9 (6.3-8.2) g/dL Albumin 5.0 (3.5-5.0) g/dL Assessment and Plan Assessment: Right upper quadrant pain Cholecystitis We'll perform laparoscopic cholecystectomy.
[2022-08-26] MEDS ORDERED: PROPOFOL 10 MG/ML 20 ML VIAL IV ONE (11:29)
[2022-08-26] MEDS ORDERED: MIDAZOLAM 2 MG/2 ML VIAL ONE (11:29)
[2022-08-26] MEDS ORDERED: LIDOCAINE 2% INJ 20 MG/ML (2 ML VIAL) ONE (11:29)
[2022-08-26] MEDS ORDERED: GLYCOPYRROLATE 0.2 MG/ML 2 ML VIAL ONE (11:29)
[2022-08-26] MEDS ORDERED: ROCURONIUM 10 MG/ML (5 ML VIAL) IV ONE (11:29)
[2022-08-26] MEDS ORDERED: NEOSTIGMINE 1 MG/ML 10 ML VIAL ONE (11:29)
[2022-08-26] MEDS ORDERED: SUCCINYLCHOLINE CHLORIDE 200 MG/10 ML VIAL IV ONE (11:29)
[2022-08-26] MEDS ORDERED: fentaNYL (PF) 50 MCG/ML 2 ML AMP ONE (11:29)
[2022-08-26] MEDS ORDERED: BUPIVACAINE (PF) 0.25% 30 ML VIAL SQ ONE ×2 (11:31→11:56)
[2022-08-26] MEDS ORDERED: oxyCODONE-APAP 5-325MG 1 EACH TAB PO PRN (12:11)
--- NOTE | 2022-08-26 12:11 | P.OP ---
Date of Procedure: 08/26/22 Preoperative Diagnosis: Cholecystitis Postoperative Diagnosis: Cholecystitis Procedure(s) Performed: Laparoscopic cholecystectomy Anesthesia: LUIS Surgeon: Christofer Acosta Estimated Blood Loss (ml): 5 Pathology: other (Gallbladder) Condition: stable Disposition: PACU Description of Procedure: The patient was placed on the operating table. The patient received a general endotracheal tube anesthesia. The patients abdomen was prepped and draped in the usual sterile fashion. Through an infraumbilical stab incision, the fascia of the anterior abdominal wall was grasped with a pair of Kochers and then the Veress needle was placed in the peritoneal cavity. Position of the Veress needle was confirmed with positive drop test. The abdomen was then insufflated. After adequate insufflation, the 10 mm trocar was placed in the peritoneal cavity. Following this the laparoscope was placed in the peritoneal cavity. The patient was placed in the head-up, right side up position and then a 5 mm trocar was placed in the right lateral and right subcostal position under direct visualization. A 8 mm trocar was placed in the epigastric position. The gallbladder was grasped in the fundus and infundibulum. Traction on the gallbladder was placed in the lateral and the cephalad positions. The triangle of Calot was visualized.. The cystic duct was bluntly dissected until the union of the cystic duct and common bile duct was seen. A critical view of safety was achieved. The cystic duct was then divided and sealed with the Harmonic scissors. A PDS Endoloop was then placed throughout the cystic duct stump. The cystic artery divided and sealed with the Harmonic scissors. The gallbladder was then removed from the liver bed using Harmonic scissors. The gallbladder was then extracted through the epigastric port site. Operative field was checked for any bleeding spots and Harmonic scissors was used to coagulate the liver bed. The abdomen was irrigated. The trocars were removed. The skin was closed using interrupted 3-0 Vicryl suture. Dermabond dressing were applied. The patient tolerated the procedure well.
[2022-08-26 12:29] VITALS: TEMP 98
[2022-08-26] MEDS ORDERED: HYDROmorphone 0.5 MG/0.5 ML SYRINGE IVP ONE (13:55)
[2022-08-26 14:56] VITALS: RESP 16
[2022-08-26] MEDS ORDERED: LABETALOL SYRINGE 5 MG/ML IV ONE (15:27)
[2022-08-26] MEDS ORDERED: PIPERACILLIN-TAZOBACTAM 3.375 GM in SODIUM CHLORIDE 0.9% 100 ML IVPB SCH (16:00)
[2022-08-26 16:02] VITALS: BP 155/91; PULSE 67
[2022-08-27] MEDS ORDERED: ENOXAPARIN 40 MG/0.4 ML SYRINGE SQ SCH (09:00)
--- NOTE | 2022-09-09 07:58 | P.DS ---
Providers Date of admission: 08/26/22 08:35 Expected date of discharge: 08/26/22 Attending physician: Christofer Acosta Primary care physician: [facility] Course: This is a 37-year-old male who was admitted through the emergency room with complaints of right upper quadrant pain. Patient's found have acute cholecystitis with gallstones. Patient underwent laparoscopic cholestatic. Patient did well postop. He was discharged home on postoperative day 0. Procedures: Laparoscopic cholecystectomy Patient Condition at Discharge: Stable Plan - Discharge Summary New Discharge Prescriptions: New Ibuprofen [Motrin] 600 mg PO Q6HR PRN #40 tab PRN Reason: Pain Acetaminophen Tab [Tylenol] 650 mg PO Q6H #30 tab Docusate [Colace] 100 mg PO BID #20 capsule oxyCODONE HCL [OxyIR] 5 mg PO Q6H PRN 3 Days #10 tab PRN Reason: Pain Discharge Medication List Acetaminophen Tab [Tylenol] 650 mg PO Q6H #30 tab 08/26/22 [Rx] Docusate [Colace] 100 mg PO BID #20 capsule 08/26/22 [Rx] Ibuprofen [Motrin] 600 mg PO Q6HR PRN #40 tab 08/26/22 [Rx] oxyCODONE HCL [OxyIR] 5 mg PO Q6H PRN 3 Days #10 tab 08/26/22 [Rx] Follow up Appointment(s)/Referral(s): Walter Jefferson DO [Primary Care Provider] - 1-2 days Christofer Acosta MD [STAFF PHYSICIAN] - 09/03/22 3:00 pm Patient Instructions/Handouts: *Surgery [facility] - Laparoscopic Cholecystectomy Discharge Instructions, *Surgery [facility] - (Anesthesia) Discharge Instructions Outpatient Surgery, Laparoscopic Cholecystectomy (DC) Discharge Disposition: HOME SELF-CARE
== END 2022-08-26 15:55 | disposition home or self-care (01) ==
LOC: EC 02:07 → 6NMEDSUR 08:35
PROVIDERS: ADMIT Surgery; ATTEND Surgery
DX: K80.12 Calculus of gallbladder with acute and chronic cholecystitis without obstruction (principal); E16.2 Hypoglycemia, unspecified; K21.9 Gastro-esophageal reflux disease without esophagitis; Z90.49 Acquired absence of other specified parts of digestive tract; Z98.890 Other specified postprocedural states; F17.210 Nicotine dependence, cigarettes, uncomplicated; Z79.899 Other long term (current) drug therapy; Z91.018 Allergy to other foods
CPT/HCPCS: 47562; 99285; 36415; 88304; 80053; 82150; 83605; 83690; 85025; 81003; 74018; 76705; 71275; 74177; G0378; J2250; J0330; J1644; J1100; J2710; J2405; J3010; J0295; J2704; J1170; Q9967; J2001; 96360; 96361